=== PATIENT | female | born 1950 | race Caucasian/White ===

== ENCOUNTER → 2017-06-28 | Outpatient (CLI) | payer MEDICARE, BC ==
[2017-06-28 08:54] LABS: Blood Urea Nitrogen 17 mg/dL (7-17); Non-African American GFR(MDRD) >60 (>60 ml/min/1.73 sqM)
--- NOTE | 2017-06-28 09:54 | CT ---
EXAMINATION TYPE: CT ChestAbdPelvis w con DATE OF EXAM: 06/28/2017 COMPARISON: 06/27/2016 HISTORY: Follow up to lymphoma CT DLP: 439.1 mGycm Automated exposure control for dose reduction was used. CONTRAST: CT scan of the chest, abdomen and pelvis is performed with Oral Contrast and with IV Contrast, patien t injected with 100 mL of Omnipaque 300. FINDINGS: LUNGS: Subsegmental consolidation involving the lungs. No sizable pulmonary nodule, pleural effusion, or pneumothorax. MEDIASTINUM: There are no greater than 1 cm hilar or mediastinal lymph nodes. No pericardial effusi on is seen. Stable cardiomegaly. OTHER: No additional significant abnormality is seen. LIVER/GB: No significant abnormality is appreciated. PANCREAS: No significant abnormality is seen. SPLEEN: No significant abnormality is seen. ADRENALS: No significant abnormality is seen. KIDNEYS: No significant abnormality is seen. BOWEL: Stable hiatal hernia. LYMPH NODES: No greater than 1 cm abdominal or pelvic lymph nodes are appreciated. OSSEOUS STRUCTURES: Osseous structures are demineralized. There are multiple mild compression type fr acture deformities in the lower thoracic and upper lumbar spine as well as a mild compression deformi ty at L4 level all redemonstrated. Slight underlying scoliotic curvature is present. Single circumscr ibed lucent lesion at L3 is stable. IMPRESSION: 1. No suspicious mass or adenopathy is seen to suggest neoplastic or lymphoma recurrence. 2. There is fullness to the lower uterine segment and endocervical region on the left measuring 2.9 c m. Possibly related to uterine fibroid. Other etiologies not excluded. Recommend pelvic ultrasound.
== END | disposition home or self-care (01) ==
LOC: RADCTMAIN 08:19
PROVIDERS: ATTEND Internal Medicine Hematology & Oncology
DX: C83.35 Diffuse large B-cell lymphoma, lymph nodes of inguinal region and lower limb (principal); Z91.09 Other allergy status, other than to drugs and biological substances
CPT/HCPCS: 82565; 84520; 71260; 74177; 36415; Q9967

== ENCOUNTER → 2018-07-03 | Outpatient (CLI) | payer MEDICARE, BC ==
[2018-07-03 08:47] LABS: Blood Urea Nitrogen 17 mg/dL (7-17)
--- NOTE | 2018-07-03 12:45 | CT ---
EXAMINATION TYPE: CT ChestAbdPelvis w con DATE OF EXAM: 07/03/2018 COMPARISON: Most recent CT June 28, 2017 and older CTs. HISTORY: Diffuse large B cell non-Hodgkin Lymphoma progress study. Completed chemotherapy 2013. Origi celestine diagnosed right groin 2012. CT DLP: 458.10 mGycm. Automated Exposure Control for Dose Reduction was Utilized. CONTRAST: CT scan of the thorax, abdomen and pelvis is performed with oral and with IV Contrast, patient inject ed with 100 ml mL of Isovue 300. Prior PET/CT August 03, 2013. FINDINGS: LUNGS: The lungs are grossly clear, there is no concerning parenchymal mass or nodule identified. T here is no pleural effusion or pneumothorax seen. The tracheobronchial tree is patent. MEDIASTINUM: There are no greater than 1 cm hilar or mediastinal lymph nodes. No cardiomegaly or pe ricardial effusion is seen. There is redemonstration of bovine type arch which is normal variant OTHE R: No additional significant abnormality is seen. LIVER/GB: No significant abnormality is appreciated. PANCREAS: No significant abnormality is seen. SPLEEN: No significant abnormality is seen. ADRENALS: No significant abnormality is seen. KIDNEYS: No significant abnormality is seen. BOWEL: There is stable moderate size hiatal hernia. Oral contrast extends to terminal ileum. There is no suspicious small or large bowel dilatation. GENITAL ORGANS: Anteverted uterus is seen. Both ovaries are identified and not suspiciously enlarged. There is eccentric fullness of the lower uterine segment and/or cervix redemonstrated near axial tana ge 94, this is not significantly changed from prior exams but should be correlated clinically with di rect pelvic exam and/or Pap smear. LYMPH NODES: No greater than 1cm abdominal or pelvic lymph nodes are appreciated on current study wit h particular attention to the right groin and iliac chain region at area of prior or original neoplas m. OSSEOUS STRUCTURES: Demineralization is redemonstrated. There are mild to moderate compression fractu res in the lower thoracic and lumbar spine redemonstrated. Hemangioma right L3 level is redemonstrate d. Butterfly-type vertebra T10 level is redemonstrated. OTHER: No significant additional abnormality is seen. IMPRESSION: No suspicious new adenopathy identified to suggest recurrent neoplasm. No significant dieudonne nge from most recent prior study.
== END | disposition home or self-care (01) ==
LOC: RADCTMAIN 08:10
PROVIDERS: ATTEND Internal Medicine Hematology & Oncology
DX: C83.35 Diffuse large B-cell lymphoma, lymph nodes of inguinal region and lower limb (principal); Z91.048 Other nonmedicinal substance allergy status
CPT/HCPCS: 82565; 84520; 71260; 74177; 36415; Q9967

== ENCOUNTER → 2018-10-15 | Outpatient (CLI) | payer MEDICARE, BC ==
--- NOTE | 2018-10-15 10:49 | MM ---
Reason for exam: additional evaluation requested from prior study. Last mammogram was performed 8 months ago. History: Patient has history of other cancer at age 62. Physical Findings: Nurse did not find any significant physical abnormalities on exam. MG 3D Diag Mammo W/Cad STU Bilateral CC and MLO view(s) were taken. Prior study comparison: February 07, 2018, mammogram. The breast tissue is heterogeneously dense. This may lower the sensitivity of mammography. No suspicious abnormality. No significant new findings when compared with previous films. These results were verbally communicated with the patient and result sheet given to the patient on 10/15/18. ASSESSMENT: Negative, BI-RAD 1 RECOMMENDATION: Routine screening mammogram of both breasts in 1 year.
== END ==
LOC: RADMAMWWP 09:21
PROVIDERS: ATTEND Internal Medicine
DX: N64.59 Other signs and symptoms in breast (principal)
CPT/HCPCS: 77066; G0279; 77062

== ENCOUNTER → 2019-01-15 | Outpatient (CLI) | payer MEDICARE, BC ==
--- NOTE | 2019-01-16 10:25 | BD ---
EXAMINATION TYPE: Axial Bone Density DATE OF EXAM: 01/15/2019 COMPARISON: NONE CLINICAL HISTORY: Postmenopausal female. Osteoporosis screening. Height: 5'2 Weight: 122 FRAX RISK QUESTIONS: History of Fracture in Adulthood: y Secondary Osteoporosis: RISK FACTORS HISTORY OF: Spine Fracture: L sp When: 65 History of Wrist Fracture: david When: left :50 Right : 51 Diet low in dairy products/other sources of calcium: y Postmenopausal woman: y Lost more than 2 inches in height since high school: y MEDICATIONS: Additional Medications: blood pressure, anxiety,cholesterol,calcium, vitamin D Additional History: lymphoma with chemo age 54 EXAM MEASUREMENTS: Bone mineral densitometry was performed using the [employer] System. Bone mineral density about the R hip (g/cm2): 0.713 Bone mineral density about the L hip (g/cm2): 0.655 T Score values are as follows: -----R Neck: -2.3 -----L Neck: -2.8 -----R Total: -2.3 -----L Total: -3.5 IMPRESSION: Osteoporosis (T Score less than -2.5). There is increased fracture risk and therapy is usually indicated based on age. Re-Screen 1-2 years. NOTE: T-SCORE=SD OF THE YOUNG ADULT MEAN.
== END | disposition home or self-care (01) ==
LOC: RADBDWWP 17:13
PROVIDERS: ATTEND Internal Medicine Hematology & Oncology
DX: M81.0 Age-related osteoporosis without current pathological fracture (principal); N95.1 Menopausal and female climacteric states
CPT/HCPCS: 77080

== ENCOUNTER → 2019-07-08 | Outpatient (CLI) | payer MEDICARE, BC ==
[2019-07-08 09:48] LABS: African American GFR (CKD) >90 (>60 ml/min/1.73 sqM); Blood Urea Nitrogen 23 mg/dL (7-17); Non-African American GFR(CKD) >90 (>60 ml/min/1.73 sqM)
--- NOTE | 2019-07-08 12:36 | CT ---
EXAMINATION TYPE: CT ChestAbdPelvis w con DATE OF EXAM: 07/08/2019 COMPARISON: 07/03/2018 HISTORY: Lymphoma CT DLP: 432.2 mGycm CONTRAST: CT scan of the chest, abdomen and pelvis is performed with Oral Contrast and with IV Contrast, patien t injected with 100 mL of Isovue 300. CT Chest: LUNGS: The lungs are clear and free of infiltrate or atelectasis. No pulmonary nodule or mass is det ected. No pleural effusion or CT evidence of interstitial lung disease. MEDIASTINUM: No evidence for aneurysm of the descending thoracic aorta. The heart is not enlarged. N o evidence for mediastinal mass or adenopathy. Moderate fixed hiatal hernia noted. HILAR STRUCTURES: No evidence for mass. No hilar adenopathy is appreciated. OTHER: No significant abnormality. CONTRAST CT ABDOMEN AND PELVIS FINDINGS: LIVER/GB: Fatty hepatic infiltration noted. No calcified gallstones. No space occupying hepatic le haylee. Biliary tree is of normal caliber. PANCREAS: No inflammation. No distinct mass. SPLEEN: No splenic enlargement. No lesion seen. ADRENALS: No nodule. No thickening. KIDNEYS/BLADDER: No hydronephrosis. No nephrolithiasis. No disctinct renal mass. BOWEL: Normal appendix. Normal bowel caliber. No inflammation. GENITAL ORGANS: No gross abnormality. LYMPH NODES: No greater than 1cm abdominal or pelvic lymph nodes are appreciated. AORTA: No significant abnormality. OSSEOUS STRUCTURES: No significant abnormality is seen. OTHER: No significant additional abnormality is seen. IMPRESSION: 1. No evidence for adenopathy at this point in time.
== END ==
LOC: RADCTMAIN 08:55
PROVIDERS: ATTEND Internal Medicine Hematology & Oncology
DX: C83.35 Diffuse large B-cell lymphoma, lymph nodes of inguinal region and lower limb (principal)
CPT/HCPCS: 82565; 84520; 71260; 74177; 36415; Q9967 ×2

== ENCOUNTER → 2021-10-27 | Outpatient (CLI) | payer MEDICARE, BC ==
--- NOTE | 2021-10-27 12:40 | BD ---
EXAMINATION TYPE: Axial Bone Density DATE OF EXAM: 10/27/2021 COMPARISON: NONE CLINICAL HISTORY: 71 years year old Female. ICD-10 CODE: M81.0 OSTEOPOROSIS Height: 5 FT 1/2 IN Weight: 117 FRAX RISK QUESTIONS: Alcohol (3 or more units per day): NO Family History (Parent hip fracture): NO Glucocorticoids (More than 3mos): NO (Ex: prednisone, prednisolone, methylprednisolone, dexamethasone, and hydrocortisone). History of Fracture in Adulthood: YES Secondary Osteoporosis: 1. Type 1 Diabetes: NO 2. Hyperthyroidism: NO 3. Menopause before 45: NO 4. Malnutrition: NO 5. Chronic liver disease: NO Rheumatoid Arthritis: NO Current Tobacco Use: NO RISK FACTORS HISTORY OF: Surgery to Spine/Hip(right/left)/Wrist (right/left): NO Family History of Osteoporosis: NO Active: YES Diet low in dairy products/other sources of calcium: NO Postmenopausal woman: YES Take estrogen and/or progesterone medications: NO Lost more than 2 inches in height since high school: YES Frequent falls: NO Poor Health: GOOD Hyperparathyroidism: NO Adrenal Insufficiency: NO MEDICATIONS: Additional Medications: BLOOD PRESSURE MEDS, CHOLESTEROL MEDS, ANXIETY MEDS NEEDED Additional History: EXAM MEASUREMENTS: Bone mineral densitometry was performed using the [employer] System. Bone mineral density as measured about the Lumbar spine is: ----- L1-L4(G/cm2): 1.027 T Score Values are as follows: ----- L1: -0.9 ----- L2: -1.9 ----- L3: -1.9 ----- L4: -0.8 ----- L1-L4: -1.3 LUMBAR WAS NOT DONE LAST TIME Bone mineral density about the R hip (g/cm2): 0.725 Bone mineral density about the L hip (g/cm2): 0.662 T Score values are as follows: -----R Neck: -2.2 -----L Neck: -2.7 -----R Total: -2.4 -----L Total: -3.5 Bone mineral density has: DECREASED -0.6 % since study of: 2019 FRAX%s: The graph provided illustrates a 24.6 % chance for a major osteoporotic fx and a 7.6 % chanc e for the hips probability for fx in 10 years time. IMPRESSION: Osteoporosis NOTE: T-SCORE=SD OF THE YOUNG ADULT MEAN.
== END | disposition home or self-care (01) ==
LOC: RADBDWWP 10:00
PROVIDERS: ATTEND Internal Medicine Hematology & Oncology
DX: C83.35 Diffuse large B-cell lymphoma, lymph nodes of inguinal region and lower limb (principal); M81.0 Age-related osteoporosis without current pathological fracture
CPT/HCPCS: 77080

== ENCOUNTER 2023-08-15 23:11 | Emergency (ER) | payer BC, MEDICARE ==
[2023-08-15 23:35] VITALS: BP 127/74; PULSE 117; RESP 16; TEMP 100.5
[2023-08-15 23:56] LABS: ALT 16 U/L (4-34); AST 26 U/L (14-36); African American GFR (CKD) >90 (>60 ml/min/1.73 sqM); Albumin 4.4 g/dL (3.5-5.0); Alkaline Phosphatase 101 U/L (38-126); Anion Gap 14 mmol/L; Blood Urea Nitrogen 26 mg/dL (7-17); Carbon Dioxide 22 mmol/L (22-30); Chloride 101 mmol/L (98-107); Glucose 148 mg/dL (74-99); Non-African American GFR(CKD) 89 (>60 ml/min/1.73 sqM); Potassium 3.8 mmol/L (3.5-5.1); Sodium 137 mmol/L (137-145)
[2023-08-16 00:41] LABS: Basophils % (A) 0 %; Eosinophils % (A) 0 %; Lymphocytes # (A) 0.4 k/uL (1.0-4.8); Lymphocytes % (A) 4 %; MCH 27.5 pg (25.0-35.0); MCHC 32.7 g/dL (31.0-37.0); MCV 84.2 fL (80.0-100.0); Mean Platelet Volume 8.6; Monocytes # (A) 0.3 k/uL (0-1.0); Monocytes % (A) 3 %; Neutrophils % (A) 93 %; Platelet Count 142 k/uL (150-450); RBC 5.47 m/uL (3.80-5.40); RDW 13.8 % (11.5-15.5); WBC 9.7 k/uL (3.8-10.6)
== END 2023-08-16 00:20 | disposition left against medical advice (07) ==
LOC: EC 23:11
DX: Z53.21 Procedure and treatment not carried out due to patient leaving prior to being seen by health care provider (principal); Z20.822 Contact with and (suspected) exposure to COVID-19
CPT/HCPCS: 36415; 80053; 85025; 87636; 99499

== ENCOUNTER 2024-02-21 14:54 | Emergency (ER) | payer MEDICARE ==
[2024-02-21 15:01] VITALS: RESP 16; TEMP 97.3
--- NOTE | 2024-02-21 15:25 | ED ---
Dizziness HPI - General Source: patient, EMS, RN notes reviewed Mode of arrival: EMS Limitations: no limitations <Deepak Sow - Last Filed: 02/21/24 15:23> - General Source: patient, family, EMS, RN notes reviewed Mode of arrival: EMS Limitations: no limitations <Abby Ayala - Last Filed: 02/22/24 06:41> - General Chief Complaint: Dizziness Stated Complaint: dizziness Time Seen by Provider: 02/21/24 15:06 - History of Present Illness Initial Comments: Quick [id number] female presents emergency department chief complaint of dizziness. Patient states that she has been have dizziness for several weeks. Patient states getting worse she states she has pain in the right posterior aspect of her head. She denies any medication no chest pain no palpitations (Deepak Sow) 74-year-old female presented to ER with a chief complaint of dizziness. Patient states she has been having ongoing dizziness for the past several weeks. She states the dizziness has been getting worse. She describes it as a room spinning sensation that is worse with positional changes. Patient states when she has a dizzy spell she does feel mildly nauseous. She does report recent pain in the posterior aspect of her head. She denies any double blurry vision, chest pain, shortness of breath, abdominal pain or peripheral edema. (Abby Ayala) - Related Data Home Medications Medication Instructions Recorded Confirmed ALPRAZolam [Xanax] 0.25 mg PO Q8HR PRN 12/17/13 08/18/14 Aspirin 81 mg PO DAILY 12/17/13 08/18/14 Metoprolol Succinate [Toprol XL] 25 mg PO DAILY 01/02/14 08/18/14 Previous Rx's Medication Instructions Recorded Meclizine [Antivert] 12.5 mg PO Q6H #20 tablet 02/21/24 Allergies Allergy/AdvReac Type Severity Reaction Status Date / Time No Known Allergies Allergy Verified 02/21/24 15:00 Review of Systems ROS Other: All systems not noted in ROS Statement are negative. <Deepak Sow - Last Filed: 02/21/24 15:23> ROS Other: All systems not noted in ROS Statement are negative. <Abby Ayala - Last Filed: 02/22/24 06:41> ROS Statement: Those systems with pertinent positive or pertinent negative responses have been documented in the HPI. Past Medical History Past Medical History: Cancer, Hypertension, Osteoarthritis (OA) Additional Past Medical History / Comment(s): lymphoma, wears back brace-fx vertebra History of Any Multi-Drug Resistant Organisms: None Reported Past Surgical History: Tubal Ligation Additional Past Surgical History / Comment(s): port a cath Past Anesthesia/Blood Transfusion Reactions: Motion Sickness Past Psychological History: Anxiety, Depression Past Alcohol Use History: None Reported Past Drug Use History: None Reported - Past Family History Sister(s) Family Medical History: Cancer <Deepak Sow - Last Filed: 02/21/24 15:23> General Exam Limitations: no limitations <Deepak Sow - Last Filed: 02/21/24 15:23> General appearance: alert, in no apparent distress Head exam: Present: atraumatic, normocephalic, normal inspection Eye exam: Present: normal appearance, PERRL, EOMI. Absent: scleral icterus, conjunctival injection, periorbital swelling Pupils: Present: normal accommodation (4mm bilaterally) ENT exam: Present: normal exam, normal oropharynx, mucous membranes moist Neck exam: Present: normal inspection. Absent: tenderness, meningismus, lymphadenopathy Respiratory exam: Present: normal lung sounds bilaterally. Absent: respiratory distress, wheezes, rales, rhonchi, stridor Cardiovascular Exam: Present: regular rate, normal rhythm, normal heart sounds. Absent: systolic murmur, diastolic murmur, rubs, gallop, clicks GI/Abdominal exam: Present: soft, normal bowel sounds. Absent: distended, tenderness, guarding, rebound, rigid Extremities exam: Present: normal inspection, full ROM, normal capillary refill, other (non pitting edema to right leg). Absent: tenderness, pedal edema, joint swelling, calf tenderness Neurological exam: Present: alert, oriented X3, CN II-XII intact Skin exam: Present: warm, dry, intact, normal color. Absent: rash <Abby Ayala - Last Filed: 02/22/24 06:41> - General Exam Comments Initial Comments: Visual Physical Exam Vital signs reviewed General: Well-appearing, nontoxic, no acute distress. Head: Normocephalic, atraumatic Eyes: PERRLA, EOMI ENT: Airway patent Chest: Nonlabored breathing Skin: No visual rash, normal skin tone Neuro: Alert and oriented 3 Musculoskeletal: No gross abnormalities (Deepak Sow) Course Vital Signs 02/21/24 02/21/24 14:57 18:56 Temperature 97.3 F L Pulse Rate 67 72 Respiratory 16 16 Rate Blood Pressure 164/89 182/88 O2 Sat by Pulse 100 98 Oximetry Medical Decision Making <Deepak Sow - Last Filed: 02/21/24 15:23> - Lab Data Result diagrams: 02/21/24 16:00 02/21/24 16:00 - EKG Data -: EKG Interpreted by Me - Radiology Data Radiology results: report reviewed, image reviewed <Abby Ayala - Last Filed: 02/22/24 06:41> - Medical Decision Making I completed the quick note portion of this chart signed Deepak Sow PA-C (Deepak Sow) Was pt. sent in by a medical professional or institution (LISA Montalvo, IT ASSISTANT, urgent care, hospital, or alf...) When possible be specific @ -No Did you speak to anyone other than the patient for history (EMS, parent, family, police, friend...)? What history was obtained from this source @ -No Did you review nursing and triage notes (agree or disagree)? Why? @ -I reviewed and agree with nursing and triage notes Were old charts reviewed (outside hosp., previous admission, EMS record, old EKG, old radiological studies, urgent care reports/EKG's, alf records)? Report findings @ -No old charts were reviewed Differential Diagnosis (chest pain, altered mental status, abdominal pain women, abdominal pain men, vaginal bleeding, weakness, fever, dyspnea, syncope, headache, dizziness, GI bleed, back pain, seizure, CVA, palpatations, mental health, musculoskeletal)? @ -Differential Dizziness: Benign paroxysmal positional Vertigo, Menieres disease, otitis media, acoustic neuroma, vertebrobasilar insufficiency, cerebellar stroke, encephalitis, hypovolemic, arrhythmia, coronary artery syndrome, anemia, this is not meant to be an all-inclusive list EKG interpreted by me (3pts min.). @ -As above X-rays interpreted by me (1pt min.). @ -None done CT interpreted by me (1pt min.). @ -CT brain negative for acute intracranial process. U/S interpreted by me (1pt. min.). @ -None done What testing was considered but not performed or refused? (CT, X-rays, U/S, labs)? Why? @ -None What meds were considered but not given or refused? Why? @ -None Did you discuss the management of the patient with other professionals (professionals i.e. DrJody, PA, IT ASSISTANT, lab, RT, psych nurse, social work instructor, recreational sports director, teacher, corporate development officer, case assembler)? Give summary @ -No Was smoking cessation discussed for >3mins.? @ -No Was critical care preformed (if so, how long)? @ -No Were there social determinants of health that impacted care today? How? (Homelessness, low income, unemployed, alcoholism, drug addiction, transportation, low edu. Level, literacy, decrease access to med. care, fci, rehab)? @ -No Was there de-escalation of care discussed even if they declined (Discuss DNR or withdrawal of care, Hospice)? DNR status @ -No What co-morbidities impacted this encounter? (DM, HTN, Smoking, COPD, CAD, Cancer, CVA, ARF, Chemo, Hep., AIDS, mental health diagnosis, sleep apnea, morbid obesity)? @ -None Was patient admitted / discharged? Hospital course, mention meds given and route, prescriptions, significant lab abnormalities, going to OR and other pertinent info. @ -Discharge. 74-year-old female presented to ER with a chief complaint of dizziness. History and physical exam completed. Vitals stable. Patient in no signs of acute distress and nontoxic-appearing. No acute neurological findings on exam. Nonpitting edema to right lower extremity which patient reports is chronic in nature status post lymph node resection due to cancer. Laboratory studies obtained unimpressive. Troponin less than 0.012. Urinalysis remarkable for trace ketones and leukocyte esterases correlating with dehydration. EKG showing sinus rhythm with T wave inversion in lead III. No acute changes. Patient received 1 L IV fluids and PO meclizine for symptom control in the ER. Upon reevaluation, patient resting comfortably on stretcher no signs of acute distress. Patient eager for discharge. Results discussed with patient, all questions answered. Symptoms believed to be related to vertigo as they increase with positional changes and negative workup. Patient stable for discharge at this time. Advised close follow-up with PCP. Meclizine prescribed. Strict return parameters discussed. Patient discharged in stable condition. Patient verbally expressed understanding and agreement care plan. Case discussed with ED attending, Dr. Akhtar. Undiagnosed new problem with uncertain prognosis? @ -No Drug Therapy requiring intensive monitoring for toxicity (Heparin, Nitro, Insulin, Cardizem)? @ -No Were any procedures done? @ -No Diagnosis/symptom? @ -Vertigo Acute, or Chronic, or Acute on Chronic? @ -Acute Uncomplicated (without systemic symptoms) or Complicated (systemic symptoms)? @ -Uncomplicated Side effects of treatment? @ -No Exacerbation, Progression, or Severe Exacerbation? @ -No Poses a threat to life or bodily function? How? (Chest pain, USA, NH, pneumonia, PE, COPD, DKA, ARF, appy, cholecystitis, CVA, Diverticulitis, Homicidal, Suicidal, threat to staff... and all critical care pts) @ -No (Abby Ayala) - Lab Data Lab Results 02/21/24 02/21/24 02/21/24 Range/Units 16:00 16:00 16:00 WBC 3.9 (3.8-10.6) k/uL RBC 5.20 (3.80-5.40) m/uL Hgb 14.5 (11.4-16.0) gm/dL Hct 45.2 (34.0-46.0) % MCV 87.0 (80.0-100.0) fL MCH 28.0 (25.0-35.0) pg MCHC 32.1 (31.0-37.0) g/dL RDW 13.7 (11.5-15.5) % Plt Count 138 L (150-450) k/uL MPV 7.5 Neutrophils % 73 % Lymphocytes % 17 % Monocytes % 6 % Eosinophils % 2 % Basophils % 0 % Neutrophils # 2.9 (1.3-7.7) k/uL Lymphocytes # 0.7 L (1.0-4.8) k/uL Monocytes # 0.2 (0-1.0) k/uL Eosinophils # 0.1 (0-0.7) k/uL Basophils # 0.0 (0-0.2) k/uL Sodium 140 (137-145) mmol/L Potassium 3.8 (3.5-5.1) mmol/L Chloride 109 H (98-107) mmol/L Carbon Dioxide 25 (22-30) mmol/L Anion Gap 6 mmol/L BUN 15 (7-17) mg/dL Creatinine 0.50 L (0.52-1.04) mg/dL Est GFR (CKD-EPI)AfAm >90 (>60 ml/min/1.73 sqM) Est GFR (CKD-EPI)NonAf >90 (>60 ml/min/1.73 sqM) Glucose 120 H (74-99) mg/dL Calcium 9.3 (8.4-10.2) mg/dL Magnesium 1.9 (1.6-2.3) mg/dL Total Bilirubin 0.9 (0.2-1.3) mg/dL AST 28 (14-36) U/L ALT 15 (4-34) U/L Alkaline Phosphatase 75 (38-126) U/L Troponin I <0.012 (0.000-0.034) ng/mL Total Protein 6.1 L (6.3-8.2) g/dL Albumin 3.9 (3.5-5.0) g/dL Urine Color Urine Appearance (Clear) Urine pH (5.0-8.0) Ur Specific [place] (1.001-1.035) Urine Protein (Negative) Urine Glucose (UA) (Negative) Urine Ketones (Negative) Urine Blood (Negative) Urine Nitrite (Negative) Urine Bilirubin (Negative) Urine Urobilinogen (<2.0) mg/dL Ur Leukocyte Esterase (Negative) Urine RBC (0-5) /hpf Urine WBC (0-5) /hpf Ur Squamous Epith Cells (0-4) /hpf Urine Bacteria (None) /hpf Hyaline Casts (0-2) /lpf Urine Mucus (None) /hpf 02/21/24 Range/Units 16:40 WBC (3.8-10.6) k/uL RBC (3.80-5.40) m/uL Hgb (11.4-16.0) gm/dL Hct (34.0-46.0) % MCV (80.0-100.0) fL MCH (25.0-35.0) pg MCHC (31.0-37.0) g/dL RDW (11.5-15.5) % Plt Count (150-450) k/uL MPV Neutrophils % % Lymphocytes % % Monocytes % % Eosinophils % % Basophils % % Neutrophils # (1.3-7.7) k/uL Lymphocytes # (1.0-4.8) k/uL Monocytes # (0-1.0) k/uL Eosinophils # (0-0.7) k/uL Basophils # (0-0.2) k/uL Sodium (137-145) mmol/L Potassium (3.5-5.1) mmol/L Chloride (98-107) mmol/L Carbon Dioxide (22-30) mmol/L Anion Gap mmol/L BUN (7-17) mg/dL Creatinine (0.52-1.04) mg/dL Est GFR (CKD-EPI)AfAm (>60 ml/min/1.73 sqM) Est GFR (CKD-EPI)NonAf (>60 ml/min/1.73 sqM) Glucose (74-99) mg/dL Calcium (8.4-10.2) mg/dL Magnesium (1.6-2.3) mg/dL Total Bilirubin (0.2-1.3) mg/dL AST (14-36) U/L ALT (4-34) U/L Alkaline Phosphatase (38-126) U/L Troponin I (0.000-0.034) ng/mL Total Protein (6.3-8.2) g/dL Albumin (3.5-5.0) g/dL Urine Color Colorless Urine Appearance Clear (Clear) Urine pH 7.0 (5.0-8.0) Ur Specific [place] 1.007 (1.001-1.035) Urine Protein Negative (Negative) Urine Glucose (UA) Negative (Negative) Urine Ketones Trace H (Negative) Urine Blood Negative (Negative) Urine Nitrite Negative (Negative) Urine Bilirubin Negative (Negative) Urine Urobilinogen <2.0 (<2.0) mg/dL Ur Leukocyte Esterase Trace H (Negative) Urine RBC <1 (0-5) /hpf Urine WBC 2 (0-5) /hpf Ur Squamous Epith Cells 1 (0-4) /hpf Urine Bacteria Rare H (None) /hpf Hyaline Casts 1 (0-2) /lpf Urine Mucus Rare H (None) /hpf - EKG Data EKG Comments: EKG taken at 16: 02 showing sinus rhythm with inverted T waves in lead III. No other acute ST segment or T wave abnormalities. Normal axis. Ventricular rate 62, OH interval 196, QRS duration 91, QT/QTc 407/412. (Abby Ayala) Disposition <Deepak Sow - Last Filed: 02/21/24 15:23> Is patient prescribed a controlled substance at d/c from ED?: No Time of Disposition: 18:27 <Abby Ayala - Last Filed: 02/22/24 06:41> Clinical Impression: Vertigo Disposition: HOME SELF-CARE Condition: Stable Instructions (If sedation given, give patient instructions): Vertigo (ED), Dizziness (ED) Additional Instructions: Please follow-up with PCP in the next 1-2 days. Return to the ER for any new or worsening symptoms. Prescriptions: Meclizine [Antivert] 12.5 mg PO Q6H #20 tablet Referrals: None,Stated [REFERRING] - 1-2 days Chintan Zabala DO [Primary Care Provider] - 1-2 days
[2024-02-21 16:13] LABS: Basophils % (A) 0 %; Eosinophils # (A) 0.1 k/uL (0-0.7); Eosinophils % (A) 2 %; HCT 45.2 % (34.0-46.0); HGB 14.5 gm/dL (11.4-16.0); Lymphocytes # (A) 0.7 k/uL (1.0-4.8); Lymphocytes % (A) 17 %; MCHC 32.1 g/dL (31.0-37.0); Mean Platelet Volume 7.5; Monocytes # (A) 0.2 k/uL (0-1.0); Monocytes % (A) 6 %; Neutrophils # (A) 2.9 k/uL (1.3-7.7); Neutrophils % (A) 73 %; Platelet Count 138 k/uL (150-450); RDW 13.7 % (11.5-15.5); WBC 3.9 k/uL (3.8-10.6)
--- NOTE | 2024-02-21 16:32 | CT ---
EXAMINATION TYPE: CT brain wo con CT DLP: 1146.4 mGycm, Automated exposure control for dose reduction was used. DATE OF EXAM: 02/21/2024 4:24 PM COMPARISON: None. CLINICAL INDICATION:Female, 74 years old with history of Dizziness, Dizziness and recent falls TECHNIQUE: Brain: Axial CT images of the brain were obtained with coronal and sagittal reformats created and rev iewed. Contrast used: None. Oral contrast used: None. FINDINGS: Brain: Extra-axial spaces: No abnormal extra-axial fluid collections. Ventricular system: Within normal limits Cerebral parenchyma: No acute intraparenchymal hemorrhage or mass effect. The fraga-white junction is well differentiated. Cerebellum: Unremarkable. Mass effect: No evidence of midline shift. Intracranial vasculature: Atherosclerotic calcifications of the intracranial vessels. Soft tissues: Normal. Calvarium/osseous structures: No depressed skull fracture. Paranasal sinuses and mastoid air cells: Mild scattered paranasal sinus disease. Visualized orbits: Orbital contents are intact. IMPRESSION: No acute intracranial process.
[2024-02-21 17:07] LABS: Appearance,Urine Clear (Clear); Bacteria,Urine Rare /hpf; Bilirubin,Urine Negative (Negative); Blood,Urine Negative (Negative); Color,Urine Colorless; Glucose,Urine (UA) Negative (Negative); Hyaline Casts,Urine 1 /lpf (0-2); Ketones,Urine Trace (Negative); Leukocyte Esterase,Urine Trace (Negative); Mucus,Urine Rare /hpf; Nitrite,Urine Negative (Negative); Protein,Urine Negative (Negative); RBC,Urine <1 /hpf (0-5); Specific Gravity,Urine 1.007 (1.001-1.035); Squamous Epithelial Cell,Urine 1 /hpf (0-4); Urobilinogen,Urine <2.0 mg/dL (<2.0); WBC,Urine 2 /hpf (0-5)
[2024-02-21] MEDS: MECLIZINE 12.5 MG TAB PO STA (17:58)
[2024-02-21] MEDS: SODIUM CHLORIDE 0.9% 1,000 ML IV STA (17:58)
[2024-02-21 18:01] LABS: ALT 15 U/L (4-34); AST 28 U/L (14-36); African American GFR (CKD) >90 (>60 ml/min/1.73 sqM); Albumin 3.9 g/dL (3.5-5.0); Alkaline Phosphatase 75 U/L (38-126); Anion Gap 6 mmol/L; Blood Urea Nitrogen 15 mg/dL (7-17); Calcium 9.3 mg/dL (8.4-10.2); Carbon Dioxide 25 mmol/L (22-30); Chloride 109 mmol/L (98-107); Glucose 120 mg/dL (74-99); Magnesium 1.9 mg/dL (1.6-2.3); Non-African American GFR(CKD) >90 (>60 ml/min/1.73 sqM); Potassium 3.8 mmol/L (3.5-5.1); Sodium 140 mmol/L (137-145); Total Bilirubin 0.9 mg/dL (0.2-1.3); Total Protein 6.1 g/dL (6.3-8.2)
[2024-02-22 01:57] VITALS: BP 182/88; PULSE 72
== END 2024-02-21 18:59 | disposition home or self-care (01) ==
LOC: EC 14:54
DX: R42 Dizziness and giddiness (principal)
CPT/HCPCS: 36415; 70450; 80053; 81001; 83735; 84484; 85025; 93005; 96360; 99284

== ENCOUNTER → 2024-03-08 | Outpatient (CLI) | payer MEDICARE ==
[2024-03-09 02:17] LABS: Basophils # (A) 0.02 X 10*3/uL (0.00-0.10); Basophils % (A) 0.5 %; Eosinophils # (A) 0.06 X 10*3/uL (0.04-0.35); Eosinophils % (A) 1.5 %; HCT 42.9 % (37.2-46.3); HGB 13.5 g/dL (12.0-15.0); Lymphocytes # (A) 0.88 X 10*3/uL (0.90-5.00); MCH 27.7 pg (27.0-32.0); MCHC 31.5 g/dL (32.0-37.0); MCV 87.9 FL (80.0-97.0); Mean Platelet Volume 10.9 FL (9.5-12.2); Monocytes # (A) 0.26 X 10*3/uL (0.20-1.00); Monocytes % (A) 6.5 %; NRBC Per 100 WBC 0 X 10*3/uL (0.00-0.01); Neutrophils # (A) 2.77 X 10*3/uL (1.80-7.70); Neutrophils % (A) 69.2 %; Platelet Count 168 X 10*3/uL (140-440); RBC 4.88 X 10*6/uL (4.10-5.20); RDW 13.2 % (11.5-14.5)
[2024-03-09 03:03] LABS: ALT 16 U/L (8-44); AST 23 U/L (13-35); Albumin 4.3 g/dL (3.8-4.9); Albumin/Globulin Ratio 2.53 Ratio (1.60-3.17); Alkaline Phosphatase 81 U/L (41-126); BUN/Creat Ratio 24.57 Ratio (12.00-20.00); Bilirubin, Conjugated <0.20 mg/dL (0.20-0.40); Bilirubin,Unconjugated >0.30 mg/dL (0.20-1.00); Blood Urea Nitrogen 17.2 mg/dL (9.0-27.0); Calcium 9.3 mg/dL (8.7-10.3); Carbon Dioxide 27.4 mmol/L (21.6-31.8); Chloride 105 mmol/L (96-109); Globulin 1.7 g/dL (1.6-3.3); Glucose 76 mg/dL (70-110); Potassium 4.4 mmol/L (3.5-5.5); Sodium 143 mmol/L (135-145); T4, Free (Free Thyroxine) 1.33 ng/dL (0.80-1.80); Total Bilirubin 0.5 mg/dL (0.3-1.2)
== END | disposition home or self-care (01) ==
LOC: LABWHC1 14:23
PROVIDERS: ATTEND Family Medicine
DX: I10 Essential (primary) hypertension (principal); E78.5 Hyperlipidemia, unspecified
CPT/HCPCS: 36415; 80048; 80076; 84439; 84443; 84481; 85025

== ENCOUNTER → 2024-03-13 | Outpatient (CLI) | payer MEDICARE ==
--- NOTE | 2024-03-13 18:52 | CA ---
Transthoracic Echo Report Name: Candie Barth Age: 74 Gender: F : 1950 Exam Date: 03/13/2024 16:25 Exam Location: [facility] Ht (in): 60 Wt (lb): 110 Ordering Physician: Chintan Zabala DO Attending/Referring Phys: Marina Matthews [facility] Manager Book Pau Marsh, CRISTINA Procedure CPT: Indications: Z92.21 HX CHEMO Cardiac Hx: Technical Quality: Fair Contrast 1: Total Dose (mL): Contrast 2: Total Dose (mL): MEASUREMENTS (Male / Female) Normal Values 2D ECHO LV Diastolic Diameter PLAX 3.9 cm 4.2 - 5.9 / 3.9 - 5.3 cm LV Systolic Diameter PLAX 2.1 cm IVS Diastolic Thickness 1.1 cm 0.6 - 1.0 / 0.6 - 0.9 cm LVPW Diastolic Thickness 0.9 cm 0.6 - 1.0 / 0.6 - 0.9 cm LV Relative Wall Thickness 0.5 RV Internal Dim ED PLAX 1.7 cm LA Systolic Diameter LX 2.9 cm 3.0 - 4.0 / 2.7 - 3.8 cm LV Diastolic Volume MOD BP 46.3 cm??? 67 - 155 / 56 - 104 cm??? LV Systolic Volume MOD BP 29.5 cm??? 22 - 58 / 19 - 49 cm??? LV Ejection Fraction MOD BP 36.3 % >= 55 % LV Cardiac Index MOD BP 679.6 cm???/min???m??? LV Diastolic Volume MOD 4C 58.4 cm??? LV Systolic Volume MOD 4C 31.1 cm??? LV Ejection Fraction MOD 4C 46.8 % LV Cardiac Index MOD 4C 1105.0 cm???/min???m??? LV Diastolic Length 4C 6.8 cm LV Systolic Length 4C 6.6 cm LV Diastolic Volume MOD 2C 34.9 cm??? LV Systolic Volume MOD 2C 13.3 cm??? LV Ejection Fraction MOD 2C 61.9 % LV Cardiac Index MOD 2C 876.1 cm???/min???m??? LV Diastolic Length 2C 6.4 cm LV Systolic Length 2C 3.7 cm LA Volume 56.7 cm??? 18 - 58 / 22 - 52 cm??? LA Volume Index 38.9 cm???/m??? 16 - 28 cm???/m??? M-MODE Aortic Root Diameter MM 3.0 cm LA Systolic Diameter MM 3.5 cm LA Ao Ratio MM 1.2 AV Cusp Separation MM 1.7 cm DOPPLER AI Peak Velocity 332.5 cm/s AI Peak Gradient 44.2 mmHg AI Pressure Half Time 1219.7 ms MV Area PHT 2.3 cm??? Mitral E Point Velocity 62.8 cm/s Mitral A Point Velocity 103.1 cm/s Mitral E to A Ratio 0.6 MV Deceleration Time 329.3 ms TR Peak Velocity 321.9 cm/s TR Peak Gradient 41.4 mmHg Right Ventricular Systolic Press 45.7 mmHg FINDINGS Left Ventricle Left ventricular ejection fraction is estimated at 55-60%. Mildly increased septal wall thickness. Normal left ventricular systolic function with no obvious regional wall motion abnormalities. Left ventricular cavity size normal. Right Ventricle Normal right ventricular size and function. Moderate pulmonary hypertension. Right Atrium Mild right atrial dilatation. Left Atrium Mildly increased left atrial volume. Mitral Valve Structurally normal mitral valve. [id number] mitral regurgitation. No mitral stenosis. Aortic Valve Trileaflet aortic valve. Trace aortic regurgitation. No aortic stenosis. Tricuspid Valve Structurally normal tricuspid valve. Moderate tricuspid regurgitation. No tricuspid stenosis. Pulmonic Valve Structurally normal pulmonic valve. Trace pulmonic regurgitation. No pulmonic stenosis. Pericardium No pericardial or pleural effusion. Aorta Normal size aortic root and proximal ascending aorta. CONCLUSIONS Diagnosis: History of chemotherapy 2D echo to evaluate LV function Preserved LV size and systolic function Prominent posterior pericardial stripe in the posterior basal region Normal RV size and function Previewed by: Dr. Benson Lopez MD (Electronically Signed) Final Date: 13 March 2024 18:51
== END | disposition home or self-care (01) ==
LOC: RADECHMAIN 16:00
PROVIDERS: ATTEND Family Medicine
DX: Z92.21 Personal history of antineoplastic chemotherapy (principal)
CPT/HCPCS: 93306

== ENCOUNTER → 2024-09-12 | Outpatient (CLI) | payer MEDICARE ==
[2024-09-12 14:50] LABS: Basophils # (A) 0.02 X 10*3/uL (0.00-0.10); Basophils % (A) 0.5 %; Eosinophils # (A) 0.07 X 10*3/uL (0.04-0.35); Eosinophils % (A) 1.6 %; HCT 43.3 % (37.2-46.3); HGB 14.1 g/dL (12.0-15.0); Lymphocytes # (A) 1.11 X 10*3/uL (0.90-5.00); Lymphocytes % (A) 25.1 %; MCH 27.7 pg (27.0-32.0); MCHC 32.6 g/dL (32.0-37.0); MCV 85.1 FL (80.0-97.0); Mean Platelet Volume 10.1 FL (9.5-12.2); Monocytes # (A) 0.34 X 10*3/uL (0.20-1.00); Monocytes % (A) 7.7 %; NRBC Per 100 WBC 0 X 10*3/uL (0.00-0.01); Neutrophils # (A) 2.88 X 10*3/uL (1.80-7.70); Neutrophils % (A) 64.9 %; Platelet Count 145 X 10*3/uL (140-440); RBC 5.09 X 10*6/uL (4.10-5.20); RDW 12.4 % (11.5-14.5); WBC 4.43 X 10*3/uL (4.50-10.00)
[2024-09-12 15:25] LABS: BUN/Creat Ratio 20.57 Ratio (12.00-20.00); Blood Urea Nitrogen 14.4 mg/dL (9.0-27.0); Calcium 9.1 mg/dL (8.7-10.3); Carbon Dioxide 26.4 mmol/L (21.6-31.8); Chloride 105 mmol/L (96-109); Chol/HDL Ratio 2.91 Ratio; Glucose 95 mg/dL (70-110); LDL Cholesterol,Calculated 74.9 mg/dL (0.0-131.0); Potassium 4.4 mmol/L (3.5-5.5); Sodium 142 mmol/L (135-145)
== END | disposition home or self-care (01) ==
LOC: LABWHC1 08:40
PROVIDERS: ATTEND Nurse Practitioner Family
DX: I10 Essential (primary) hypertension (principal)
CPT/HCPCS: 36415; 80048; 80061; 85025